=== PATIENT | female | born 1950 | race Caucasian/White ===

== ENCOUNTER → 2019-11-23 14:33 | Outpatient (CLI) | payer MEDICARE, SELFPAY ==
[2019-11-23 16:57] LABS: Albumin/Globulin Ratio 1.2 (1.1-1.8); Alkaline Phosphatase 78 U/L (38-126); Anion Gap 14.9 mEq/L (5-15); Aspartate Amino Transferase 26 U/L (14-36); Bilirubin,Total 0.4 mg/dl (0.2-1.3); Blood Urea Nitrogen 23 mg/dl (7-17); Calcium 9.6 mg/dl (8.4-10.2); Carbon Dioxide 18 mmol/L (22.0-30.0); Chloride 111 mmol/L (98-107); Estimated Glomerular Filt Rate 41 ml/min (>60); GFR (African American) 49 ML/MIN (>60); Globulin 3.4 g/dL (1.3-3.2); Glucose 270 mg/dl (74-100); Potassium 5.9 mmoL/L (3.5-5.1); Sodium 138 mmol/L (136-145); Total Protein,Serum 7.4 g/dl (6.3-8.2)
[2019-11-23 17:35] LABS: Alanine Aminotransferase 26 U/L (12-78)
== END ==
PROVIDERS: Visit Provider Internal Medicine
DX: E87.5 Hyperkalemia (principal)
CPT/HCPCS: 36415; 80053

== ENCOUNTER 2020-12-19 22:10 | Emergency (ER) | payer MEDICARE, SELFPAY ==
[2020-12-19 22:11] VITALS: BP 141/88; PULSE 94; RESP 18; TEMP 36.5; O2SAT 99; BMI 44.5
--- NOTE | 2020-12-19 22:34 | [facility].EDSKAF ---
ED Disposition Clinical Impression: Foreign body in ear Qualifiers: Encounter type: initial encounter Laterality: right Qualified Code(s): T16.1XXA - Foreign body in right ear, initial encounter Disposition: Home, Self-Care Condition on Discharge: Good Instructions: DI for Removal of Foreign Body From Ear Additional Instructions: use ear gtts and see pcp for follow up Referrals: Lalit Edwards [Primary Care Provider] - - Critical Care Critical Care Time: No Attestation: On 12/19/20, the high probability of a clinically significant, sudden or life threatening deterioration of the following system(s) required my full and direct attention, intervention and personal management. The time I documented below is in addition to time spent performing reported procedures but includes the following listed in this critical care notation. Medical Decision Making - Medical Records Medical records reviewed: Yes: I reviewed the patient's medical records. - Rafy Inquiry Pt receiving controlled substance: No Vital Signs: 12/19/20 22:11 Temperature 97.7 F Temperature Source Oral Pulse Rate [Right] 94 H Respiratory Rate 18 Blood Pressure [Right Arm] 141/88 H Blood Pressure Mean [Right Arm] 105 02 Sat by Pulse Oximetry 99 Skin/Abscess/FB HPI - General Chief complaint: Skin/Abscess/Foreign Body Stated complaint: moth in R ear Time Seen by Provider: 12/19/20 22:15 Mode of Arrival: Ambulatory Source of Information: Patient, Medical Record Limitations: No Limitations Description of Symptoms (Recalled from ER Triage Doc. by RN): pt states has moth in rt ear - History of Present Illness HPI narrative: bug rt ear tonight complaint: foreign body Onset (ago): hour(s) Tetanus up to date: unsure Location: face Severity: moderate Associated symptoms: denies other symptoms Treatments prior to arrival: none - Related Data Allergies Allergy/AdvReac Type Severity Reaction Status Date / Time ibuprofen [IBUPROFEN] Allergy Mild Unverified 05/24/17 15:26 Sulfa (Sulfonamide Allergy Mild Unverified 05/24/17 15:26 Antibiotics) [SULFA (SULFONAMIDE ANTIBIOTICS)] [facility] History - Hepatitis A Screen Drug use history?: No High risk sexual behaviors?: No History of sexually transmitted infection?: No Currently employed?: No Childcare worker?: No Do you have indoor plumbing?: Yes Do you have electricity?: Yes Attestation statement:: This patient has been screened for Hepatitis A risk factors. I have reviewed the patient's past medical history: Yes - Social History Alcohol Intake: never Occupational Status: retired ROS Obtained: Yes All systems reviewed & no additional complaints - Constitutional Constitutional: Denies fever(s) - Eyes Eyes: Denies change in vision - ENT Ears, Nose, Mouth, and Throat: Reports as per HPI, Reports otalgia - Cardiovascular Cardiovascular: Denies chest pain - Respiratory Respiratory: Denies dyspnea - Gastrointestinal Gastrointestingal: Denies: dysphagia - Genitourinary Female Genitourinary: Denies hematuria - Musculoskeletal Musculoskeletal: Denies joint pain - Integumentary/Breasts Skin/Breast: Denies rash Physical Exam - General General appearance: alert - Head Head exam: normocephalic - Eye Eye exam: Present: PERRL, EOMI - ENT ENT exam: Present: mucous membranes moist - Expanded ENT Exam TM/Canal exam: Right TM: foreign body - Neck Neck exam: Present: full ROM - Respiratory Respiratory exam: Absent: respiratory distress - Cardiovascular Cardiovascular exam: Present: regular rate - Abdominal Exam Abdominal exam: Present: soft - Extremities Exam Extremities exam: Present: full ROM - Neurological Exam Neurological exam: Present: alert, CN II-XII intact. Absent: motor sensory deficit - Psychiatric Psychiatric exam: Present: normal affect - Skin Skin exam: Absent: rash Procedures - Foreign
[2020-12-19 22:42] VITALS: BP 137/81; PULSE 90; RESP 18; TEMP 36.5; O2SAT 99
== END 2020-12-19 22:44 | disposition home or self-care (01) ==
PROVIDERS: Emergency Provider Emergency Medicine; PCP Internal Medicine
DX: T16.1XXA Foreign body in right ear, initial encounter (principal)
CPT/HCPCS: 69200; 99282